=== PATIENT | female | born 1960 | race Two or more races ===

== ENCOUNTER 2025-05-28 11:42 | Emergency (ER) | payer OTHER ==
[~2025-05-28] VITALS: Ht 160 cm; Wt 66.8 kg
--- NOTE | 2025-05-28 12:44 | ED.PDOC ---
Musculoskeletal HPI Comments A 65 YEAR-OLD FEMALE PRESENTS TO THE ED WITH A CHIEF COMPLAINT OF UPPER EXTREMITY TO THE LEFT HAND S/P TRAUMA. PATIENT STATES THAT SHE WAS PLAYING WITH HER DOG WHEN THE 4TH DIGIT OF LEFT HAND BENT BACKWARD. PATIENT CLAIMS TO HAVE HEARD A "CRACK". PATIENT HAS NO FURTHER COMPLAINTS AT THIS TIME AND OTHERWISE DENIES N/V, MIGRAINE, DIZZINESS, FEVER, OR LACERATION TO THE 4TH DIGIT. PATIENT IS ALERT, ORIENTED X 4, AND HAS STEADY GAIT. Chief Complaint: Upper Extremity Time Seen by MD: 12:49 Reviewed Notes: Nurses Notes, Medications, Allergies Allergies: Coded Allergies: NO KNOWN ALLERGIES (Unverified , 05/28/25) Information Source: Patient Mode of Arrival: Ambulatory Location: Left Extremity Location: Finger 4 Timing: Hours Prehospital treatment: None Severity: Moderate Able to Move Extremity: Yes Pain: Moderate Circumstances: Playing Onset of Symptoms: After Trauma Symptoms: Swelling, Pain Last Tetanus: UTD Associated signs and symptoms: Other (LEFT HAND, 4TH DIGIT PAIN AND SWELLING ) Past Medical History PAST MEDICAL HISTORY: DM, HTN Surgical History: Denies all surgeries VOCATIONAL REHABILITATION SPECIALIST History: No Pertinent VOCATIONAL REHABILITATION SPECIALIST History Family History Family History: Reviewed,noncontributory to illness, No family hx of Cancer, No family hx of DM, No family hx of Heart shabana, No family hx of HTN, No family hx ofKidney shabana, No family hx of Liver shabana, No family hx of Lung shabana, No family hx of Stroke Social History Smoker: Non-Smoker Alcohol: Denies ETOH Use Drugs: Denies Drug Use Lives In: Home Constitutional: denies: chills, diaphoresis, fatigue, fever, malaise, sweats, weakness, others EENTM: denies: blurred vision, double vision, ear bleeding, ear discharge, ear drainage, ear pain, ear ringing, eye pain, eye redness, hearing loss, mouth pain, mouth swelling, nasal discharge, nose bleeding, nose congestion, nose pain, photophobia, tearing, throat pain, throat swelling, voice changes, others Respiratory: denies: cough, hemoptysis, orthopnea, SOB at rest, shortness of breath, SOB with excertion, stridor, wheezing, others Cardiovascular: denies: chest pain, dizzy spells, diaphoresis, Dyspnea on exertion, edema, irregular heart beat, left arm pain, lightheadedness, palpitations, PND, syncope, others Gastrointestinal: denies: abdomen distended, abdominal pain, blood streaked bowels, constipated, diarrhea, dysphagia, difficulty swallowing, hematemesis, melena, nausea, poor appetite, poor fluid intake, rectal bleeding, rectal pain, vomiting, others Genitourinary: denies: abnormal vagina bleeding, burning, dyspareunia, dysuria, flank pain, frequency, hematuria, incontinence, pain, , vagina discharge, urgency, others Neurological: denies: dizziness, fainting, headache, left sided numbness, left sided weakness, numbness, paresthesia, pre-existing deficit, right sided numbness, right sided weakness, seizure, speech problems, tingling, tremors, weakness, others Musculoskeletal: reports: joint pain, joint swelling, others (PAIN TO THE LEFT HAND 4TH DIGIT); denies: back pain, gout, muscle pain, muscle stiffness, neck pain Integumetry: denies: bruises, change in color, change in hair/nails, dryness, laceration, lesions, lumps, rash, wounds, others Allergic/Immunocompromised: denies: Difficulty Healing, Frequent Infections, Hives, Itching, others Hematologic/Lymphatic: denies: anemia, blood clots, easy bleeding, easy bruising, swollen glands, others Endocrine: denies: excessive hunger, excessive sweating, excessive thirst, excessive urination, flushing, intolerance to cold, intolerance to heat, unexplained weight gain, unexplained weight loss, others Psychiatric: denies: anxiety, bipolar disorder, depression, hopeless, panic disorder, schizophrenia, sleepless, suicidal, others All Other Systems: Reviewed and Negative Physical Exam General Appearance: No Apparent Distress, Normal HEENT: Normal ENT Inspection, PERRL/EOMI, Pharynx Normal, TMs Normal Neck: Full Range of Motion, Non-Tender, Normal, Normal Inspection Respiratory: Chest Non-Tender, Lungs Clear, No Accessory Muscle Use, No Respiratory Distress, Normal Breath Sounds Cardiovascular: No Edema, No JVD, No Murmur, No Gallop, Normal Peripheral Pulses, Regular Rate/Rhythm Breast Exam: Deferred Gastrointestinal: No Organomegaly, Non Tender, No Pulsatile Mass, Normal Bowel Sounds, Soft Genitalia: Deferred Pelvic: Deferred Rectal: Deferred Extremities: Decreased range of motion, No calf tenderness, Normal capillary refill, No pedal edema, Swelling (TENDERNESS AND SWELLING ON LEFT 4TH FINGER, TENDERNESS AND CONTUSION ON LEFT DORSAL HAND. ), Tender (AND CONTUSION OFN LEFT HAND. ) Musculoskeletal : Apperance: Normal Neurologic: Alert, package clerk II-XII nml as Tested, No Motor Deficits, Normal Affect, Normal Mood, No Sensory Deficits Cerebellar Function: Normal Reflexes: Normal Skin: Dry, Normal Color, Warm Peripheral Pulses: 2+ carotid (R), 2+ carotid (L), 2+ Radial (R), 2+ Radial (L) Lymphatic: No Adenopathy Was a procedure done? Was a procedure done?: No Differential Diagnosis EXT Differential Diagnosis: Fracture, Sprain, Contusion, Strain, Bursitis X-Ray, Labs, Meds, VS Vital Signs Date Time Temp Pulse Resp B/P (MAP) Pulse Ox O2 Delivery O2 Flow Rate FiO2 05/28/25 11:55 98.1 64 16 138/65 (89) 97 98.1 EXAM: XY L HAND 3V XRAY CLINICAL HISTORY: INJURY COMPARISON: None TECHNIQUE: XY L HAND 3V XRAY Findings/Impression: 3 views of the left hand. Minimally displaced fracture of the proximal aspect of the 4th proximal phalanx. There is no evidence of dislocation, blastic, or lytic lesions. [id number] degenerative changes of the DIP joints. No radiopaque foreign bodies. Moderate soft tissue edema. X-Ray, Labs, Meds, VS Comment EXTERNAL MEDICAL RECORDS: NONE INDEPENDENT HISTORIANS: NONE SOCIAL DETERMINANTS OF HEALTH: NONE LABS ORDERED: NONE REVIEWED AND INTERPRETED RESULTS: NONE IMAGING ORDERED: LEFT HAND XRAY TREATMENTS ORDERED: FROG SPLINT OF LEFT 4TH FINGER PATIENT'S CASE AND RESULTS HAVE BEEN DISCUSSED WITH THE ED ATTENDING PHYSICIAN AND THEY AGREE WITH MY PLAN OF CARE. I HAVE DISCUSSED IMAGING RESULTS WITH THE PATIENT AND HAVE INSTRUCTED THE PATIENT TO FOLLOW UP WITH THEIR PCP IN 1-2 DAYS. THE PATIENT FULLY UNDERSTANDS THEIR RESULTS AND ARE AWARE THEY NEED TO FOLLOW UP WITH THEIR PCP FOR FURTHER EVALUATION IF THEIR SYMPTOMS PERSIST. Images Reviewed?: Images reviewed and evaluated by me Time of 1ST Reevaluation: 13:33 Reevaluation 1ST: Improved Patient Education/Counseling: Diagnosis, Treatment, Need For Follow Up Family Education/Counseling: Diagnosis, Treatment, No Family Present Medical Screening: No EMC Exist At This Time Departure 1 Departure Time of Disposition: 13:33 Impression: Primary Impression: Finger fracture, left Qualified Codes: S62.665A - Nondisplaced fracture of distal phalanx of left ring finger, initial encounter for closed fracture Additional Impression: Contusion of hand, left Qualified Codes: S60.222A - Contusion of left hand, initial encounter Disposition: HOME / SELF CARE / HOMELESS Condition: Stable Additional Instructions: FOLLOW-UP WITH PCP IN 1 TO 2 DAYS. TAKE MEDICATIONS PRESCRIBED. RETURN TO ED FOR ANY NEW OR WORSENING SYMPTOMS. e-Prescriptions Ibuprofen (Ibuprofen) 800 Mg Tab 1 TAB PO TID, #30 TAB Prov: DARY EMMANUEL PA 05/28/25 Discharged With: Self Critical Care Note Critical Care Time?: No Stability Stability form required: No Heart Score Heart Score: Heart Score Response (Comments) Value History N/A 0 EKG N/A 0 Age N/A 0 Risk Factors N/A 0 Troponin N/A 0 Total 0 I personally scribed for CHOLOYINXIA PA ([email or web address]) on 05/28/25 at 12:44. Electronically submitted by Chely Pa ([email or web address]). I personally scribed for CHOLO,YINXIA PA ([email or web address]) on 05/28/25 at 12:54. Electronically submitted by Chely Pa ([employer]). I personally scribed for CHOLO,YINXIA PA ([email or web address]) on 05/28/25 at 12:54. Electronically submitted by Chely Pa ([employer]). I personally scribed for CHOLO,YINXIA PA ([email or web address]) on 05/28/25 at 13:18. Electronically submitted by Chely Pa ([email or web address]). I personally scribed for CHOLO,YINXIA PA ([email or web address]) on 05/28/25 at 13:29. Electronically submitted by Chely Pa ([email or web address]). I personally scribed for CHOLO,YINXIA PA ([email or web address]) on 05/28/25 at 13:30. Electronically submitted by Chely Pa ([email or web address]). CHOLOYINXIA PA May 28, 2025 12:44
--- NOTE | 2025-05-28 13:09 | DVH ---
EXAM: XY L HAND 3V XRAY CLINICAL HISTORY: INJURY COMPARISON: None TECHNIQUE: XY L HAND 3V XRAY Findings/Impression: 3 views of the left hand. Minimally displaced fracture of the proximal aspect of the 4th proximal phalanx. There is no evidence of dislocation, blastic, or lytic lesions. [id number] degenerative robison es of the DIP joints. No radiopaque foreign bodies. Moderate soft tissue edema.
[2025-05-28] MEDS ORDERED: IBUP-1456 PO (13:39)
[2025-05-28 13:44] VITALS: BP 149/77; PULSE 62; RESP 18; TEMP 97.5; O2SAT 97
== END 2025-05-28 13:48 | disposition home or self-care (01) ==
LOC: ER 11:42
DX: S62.665A Nondisplaced fracture of distal phalanx of left ring finger, initial encounter for closed fracture (principal); S60.222A Contusion of left hand, initial encounter; E11.9 Type 2 diabetes mellitus without complications; I10 Essential (primary) hypertension; X58.XXXA Exposure to other specified factors, initial encounter; Y93.89 Activity, other specified; Y92.89 Other specified places as the place of occurrence of the external cause; Y99.8 Other external cause status
CPT/HCPCS: 29130; 73130